=== PATIENT | female | born 1985 | race Caucasian/White ===

== ENCOUNTER 2019-06-16 12:21 | Emergency (ER) | payer OTHER, SELFPAY ==
--- NOTE | ~2019-06-16 | XR_ITS ---
EXAMINATION: XR chest 2V EXAM DATE: 06/16/2019 13:31 INDICATION: Shortness of breath for 2 weeks. 24 weeks . TECHNIQUE: Frontal and lateral projections of the chest obtained and reviewed. Patient shielded. Ther e is no prior study for comparison. FINDINGS: The lungs are clear. There are no pleural effusions. The cardiomediastinal silhouette is within normal limits. There is no pneumothorax suspected. The bones and soft tissues are unremarkab le. IMPRESSION: Normal chest x-ray exam. Reviewed, dictated and finalized at location B. SCALER IMPRESSION: Normal chest x-ray exam.
--- NOTE | 2019-06-16 12:31 | ED.GENADULT ---
HPI - General Adult General Chief complaint: Shortness of Breath/Dyspnea Stated complaint: SOB Time Seen by Provider: 06/16/19 12:31 Source: patient and RN notes reviewed Mode of arrival: ambulatory Limitations: no limitations History of Present Illness HPI narrative: This patient has had a 2 to 3-week history of a feeling of shortness of breath with exertion. This began with going up steps and with exercising such as working out at the gym and swimming. And now it is become to the point where she gets short of breath whenever she walks down the [place] or goes up 6 mild short flights of steps. She does not have any chest pain. She has a distant history of asthma as a child and exercise-induced asthma when she was a teenager for which she used inhaler, but this is not been active for years. She has not had any symptoms of respiratory infection such as fever, cough, nasal drainage, ear pain, or sore throat. She has not noticed any wheezing. She has not had any abdominal pain. She has had no recent nausea and no vomiting or diarrhea at all. She has had no hematuria, no dysuria, no pyuria. He has had no rashes. She has had no vaginal discharge or bleeding. She is 24 weeks with an uncomplicated except early in the she had morning sickness and was prescribed Compazine. She takes 1 Compazine tablet at bedtime to try and prevent morning nausea. She indicates that she does not feel anxious. She does have a new job which is a little more stressful for her at this time as well as being which certainly increases stress. She has not noticed any leg swelling. She has had no paroxysmal nocturnal dyspnea and no she does have a history of goiter but her thyroid levels have always been within normal limits. She indicates her family history is positive for her father having bipolar disorder as well as her half-sister. Her other sister also has history of anxiety. She has never had any history of any form of lung disease other than asthma and has not had any unusual weight gain and no weight loss, considering that she is 24 weeks . She is not a cigarette smoker. She has never had a history of pulmonary emboli and no history of DVT. She has no leg pain. She has had no hematuria, no dysuria, no pyuria. Her has been uncomplicated without any urinary tract infections. She does not have any back pain or arm pain. She has not had any headaches or blurred vision. She did discuss the symptoms with her automatic steel tie adjuster this morning and he advised her to come to an urgent care type setting to have a cardiac work-up and possibly a chest x-ray. Related Data Home Medications Medication Instructions Recorded Confirmed 06/16/19 Prilosec 06/16/19 promethazine 06/16/19 Allergies Allergy/AdvReac Type Severity Reaction Status Date / Time sulfamethoxazole Allergy Intermediate THROAT Verified 02/25/19 19:53 CLOSES trimethoprim Allergy Intermediate THROAT Verified 02/25/19 19:53 CLOSES codeine Allergy Mild Vomiting Verified 02/25/19 19:53 Cephalosporins Allergy Unknown Verified 02/25/19 19:53 Penicillins Allergy Unknown Verified 02/25/19 19:53 Review of Systems Review of Systems: Narrative: CONSTITUTIONAL: Denies fever, chills, or sweats. Noncontributory except as pertains to the past medical history and history of present illness. EYES: Denies visual changes, redness, or discharge. ENT: Denies rhinorrhea, congestion, sore throat, or otalgia. CARDIOVASCULAR: Denies chest pain, palpitations, or edema. RESPIRATORY: Denies cough or dyspnea. GASTROINTESTINAL: Denies abdominal pain, nausea, vomiting, or diarrhea. GENITOURINARY: Denies dysuria or hematuria. SKIN: Denies rash or itching. MUSCULOSKELETAL: Denies back pain, joint pain, or myalgia. NEUROLOGIC: Denies headache, numbness, or weakness. PSYCHIATRIC: Denies anxiety or depression. [facility] Comments At time of signature,
[2019-06-16 12:35] VITALS: BP 115/78; PULSE 78; RESP 18; TEMP 37.1; O2SAT 100
--- NOTE | 2019-06-16 13:06 | ECG_ITS ---
Measurements Intervals [place] Rate: 61 P: 30 [place]: 170 QRS: 62 QRSD: 86 T: 12 QT: 376 QTc: 379 Interpretive Statements SINUS RHYTHM WITH SINUS ARRHYTHMIA BORDERLINE ST-T WAVE ABNORMALITY- ANT/INF LEADS BASELINE ARTIFACT- I, II, III BORDERLINE ECG Electronically Signed On 06-16-2019 14:28:53 HORIZONTAL [employer] OPERATOR by Ander Houser D.O.
== END 2019-06-16 13:46 | disposition home or self-care (01) ==
PROVIDERS: Emergency Provider Family Medicine; PCP Internal Medicine
DX: R06.02 Shortness of breath (principal)
CPT/HCPCS: 71046; 81003; 93005; 99213; G0463

== ENCOUNTER 2019-06-17 11:29 | Observation (INO) | payer OTHER, SELFPAY ==
[2019-06-17] VITALS (10 sets, daily range): BP systolic 111–112; BP diastolic 66–74; PULSE 56–66; O2SAT 100; BMI 24.8
--- NOTE | 2019-06-17 11:50 | OBADM ---
This patient, Sophia Still, admitted to the OB room OB Post 115 for observation. Patient/family oriented to hospital policies and general routines including ID bracelet, bed and alarms, visiting hours, pain management, procedures, bathroom and other care routines, personal items, smoking policy, room service/diet, and visiting hours. Patient/Family are encouraged to report perceived risks to care and to ask questions if they do not understand what they are told or what they should do.
--- NOTE | 2019-06-17 14:25 | PC.NURSE ---
1230- Spoke with River Feldman CNM, regarding patient admission for observation. Patient states she is having shortness of breath x2 days, upon exertion. Vitals reviewed. No contractions noted on EFM. patient denies feeling any tightening at this time. Orders to discharge patient and send her to the ED for further evaluation.
--- NOTE | 2019-06-20 08:54 | PM.OBTRLD ---
OB - Triage/Final Diagnosis Visit Information Date of evaluation: 06/17/19 Reason for evaluation: threatened labor Comments/Additional reasons for admission: and SOB
== END 2019-06-17 12:43 | disposition home or self-care (01) ==
PROVIDERS: Admitting Provider Obstetrics & Gynecology; PCP Internal Medicine; Visit Provider Obstetrics & Gynecology
DX: O47.02 False labor before 37 completed weeks of gestation, second trimester (principal); O26.891 Other specified pregnancy related conditions, first trimester; R06.02 Shortness of breath; Z3A.24 24 weeks gestation of pregnancy
CPT/HCPCS: G0378; G0379

== ENCOUNTER 2019-06-17 12:47 | Emergency (ER) | payer OTHER, SELFPAY ==
--- NOTE | ~2019-06-17 | CT_ITS ---
EXAMINATION: CTA chest PE protocol DATE: 06/17/2019 19:02 INDICATION: Shortness of breath, 24 weeks TECHNIQUE: Computed tomography angiography (CTA) of the chest was performed with 100 mL Omnipaque-350 intravenous contrast timed to evaluate the pulmonary arteries. Coronal maximum intensity projection 3D-reconstructions were created by the technologist. The dose-length product (DLP) was 176.17 mGy-cm. Automated exposure control and iterative reconstruction technique were employed. COMPARISON: None. FINDINGS: The pulmonary arteries are well-opacified. No pulmonary embolism is identified. The lungs a re free of acute opacities. There is no pleural effusion or pneumothorax. No pathologically enlarged thoracic lymph nodes are identified. The heart size is normal. The visualized osseous structures are unremarkable. IMPRESSION: 1. No pulmonary embolism or acute cardiopulmonary abnormality. Reviewed, dictated and finalized at location A. IDER RELATIONS REP
[2019-06-17 14:00] VITALS: BP 116/71; PULSE 77; RESP 16; TEMP 37.3; O2SAT 100
[2019-06-17 14:38] LABS: Basophils Absolute Auto 0.1 K/mm3 (0.0-0.1); Basophils Percent Auto 0.4 % (0.2-1.2); Eosinophils Absolute Auto 0.2 K/mm3 (0-0.3); Eosinophils Percent Auto 1.7 % (0-4.4); Hemoglobin 11.5 g/dL (12.0-15.0); Immature Granulocyte Absolute 0.08 K/mm3 (0.00-0.031); Immature Granulocyte Percent A 0.7 % (0-0.5); Lymphocytes Absolute Auto 1.74 K/mm3 (0.9-3.2); Lymphocytes Percent Auto 15.5 % (18.3-44.2); Mean Corpuscular HGB Conc 31.9 g/dl (32-36); Mean Corpuscular Volume 87.6 fl (80-100); Mean Platelet Volume 10.4 fl (7.4-10.4); Monocytes Absolute Auto 0.9 K/mm3 (0.1-0.6); Monocytes Percent Auto 8.2 % (2.6-8.5); Neutrophils Absolute Auto 8.3 K/mm3 (1.3-6.7); Neutrophils Percent Auto 73.5 % (45.5-73.1); Platelet Count Result 268 k/mm3 (150-375); Red Blood Count 4.11 M/mm3 (4.2-5.4); Red Cell Distribution Width 13.1 % (11.5-14.5); White Blood Count 11.2 K/mm3 (4.5-10.0)
[2019-06-17 14:52] LABS: Blood Urea Nitrogen 4 mg/dL (7-17); Carbon Dioxide 22 mmol/L (22-30); Chloride 102 mmol/L (98-107); Estimated CRCL calculation 108 ml/min; Estimated Glomerular Filt Rate > 60; Glucose 126 mg/dL (65-105); Potassium 3.1 mmol/L (3.4-5.0); Sodium 137 mmol/L (137-145)
[2019-06-17 17:24] VITALS: BP 118/87; PULSE 65; PULSE 67; RESP 13; O2SAT 100
--- NOTE | 2019-06-17 17:29 | ED.SOB ---
HPI - SOB/Dyspnea General Chief Complaint: Shortness of Breath/Dyspnea Stated Complaint: breathing problems 24wks preg Time Seen by Provider: 06/17/19 17:29 Source: patient Mode of arrival: ambulatory Limitations: no limitations History of Present Illness HPI Narrative: The pt is a 34 y/o female who presents to the ED c/o SOB onset one day ago. Pt states that she is 24 weeks . Pt states that she experienced the SOB with exertion; she states that she first experienced this while walking up the stairs. Pt states that she took 10 minutes to recover, and that she was very pale when this happened; this has since resolved. Pt notes that she went to urgent care, and everything was negative at that time. Pt states that it happened later again after leaving urgent care as well as today at work. She states that she has experienced dizziness as well. Pt reports tightening in her ABD, but denies CP. MD elicited complaint: shortness of breath Onset (ago): day(s) (1) Context: occurred during exertion Associated symptoms: dizziness and other (Pallor (Resolved), tightening in ABD ) Related Data Home Medications Medication Instructions Recorded Confirmed 06/16/19 Prilosec 06/16/19 promethazine 06/16/19 Allergies Allergy/AdvReac Type Severity Reaction Status Date / Time sulfamethoxazole Allergy Intermediate THROAT Verified 06/17/19 17:27 CLOSES trimethoprim Allergy Intermediate THROAT Verified 06/17/19 17:27 CLOSES codeine Allergy Mild Vomiting Verified 06/17/19 17:27 Cephalosporins Allergy Unknown Unknown Verified 06/17/19 17:27 Penicillins Allergy Unknown Unknown Verified 06/17/19 17:27 Review of Systems Review of Systems: All systems reviewed & are unremarkable except as noted in HPI and below Cardiovascular: Cardiovascular: Denies chest pain Respiratory: Respiratory: Reports dyspnea (With exertion) Gastrointestinal: Gastrointestinal: Reports other ( Tightness in ABD ) Integumentary/Breasts: Skin/Breast: Reports other (Pallor (Resolved)) Neurologic: Reports dizziness PMFSH Past Medical History Medical History (Updated 06/17/19 @ 17:32 by Chuy Blanton) Asthma Surgical History Surgical History (Updated 06/17/19 @ 17:32 by Chuy Blanton) H/O section H/O local excision of skin lesion Back Social History Social History (Updated 06/17/19 @ 17:32 by Chuy Blanton) Smoking status: Never smoker Gender identity (if verbalized by the patient): Female Comments PCP: Dr. Luna HAT COPYIST: Dr. Mcintyre Exam Const: General: no acute distress and alert Orientation/consciousness: patient oriented x3 HENMT: Head: normal to inspection Eyes: Pupils: Equal, round and reactive pupils present Neck: Neck: normal visual inspection Chest: Chest palpation & inspection: normal inspection of the chest Resp: Effort & Inspection: normal respiratory effort Auscultation: clear to auscultation bilaterally Cardio: Rate: regular rate Rhythm: regular rhythm GI: Other: Gravid abdomen : General: Yes no CVA tenderness Skin: General skin exam: normal color Neuro: General: patient oriented x3 and moves all extremities Course Course Emergency Course: Inform patient about her lab work, CT findings. At this time there is no obvious evidence of PE or pneumonia. Removed causative factor of her shortness of breath could be bronchospasm however I discussed with Dr. Mac she will follow-up with the patient in the morning tomorrow in the office. Consultations Consultation #1: Discussed case with Dr. Mcintyre, who is okay with a CT. Date: 06/17/19 Time: 17:45 Vital Signs Vital signs: Vital Signs Temperature 37.3 C 06/17/19 14:00 Pulse Rate 77 06/17/19 14:00 Respiratory Rate 16 06/17/19 14:00 Blood Pressure 116/71 06/17/19 14:00 Pulse Oximetry 100 06/17/19 14:00 Temperature 37.3 C 06/17/19 14:00 Pulse Rate 71 06/17/19 19:29 Respiratory
[2019-06-17 19:29] VITALS: BP 115/77; PULSE 71; RESP 18; O2SAT 100
[2019-06-17 20:37] VITALS: BP 96/64; PULSE 63; O2SAT 100
== END 2019-06-17 20:39 | disposition home or self-care (01) ==
PROVIDERS: Emergency Medicine; Emergency Provider Family Medicine; PCP Internal Medicine
DX: O26.892 Other specified pregnancy related conditions, second trimester (principal); R06.02 Shortness of breath; Z3A.24 24 weeks gestation of pregnancy; O99.612 Diseases of the digestive system complicating pregnancy, second trimester; J45.909 Unspecified asthma, uncomplicated
CPT/HCPCS: 36415; 71275; 80048; 85025; 85380; 99284; Q9967

== ENCOUNTER 2019-09-22 06:52 | Inpatient (IN) | payer OTHER, SELFPAY ==
[2019-09-14 15:34] VITALS: BMI 26.2
[2019-09-21 22:38] VITALS: BP 124/80; PULSE 65; RESP 16; TEMP 36.7
[2019-09-22] VITALS (147 sets, daily range): BP systolic 73–138; BP diastolic 42–98; PULSE 52–157; TEMP 36.4–37.7; O2SAT 72–100; BMI 26.9
[2019-09-22] MEDS: LACTATED RINGERS 1,000 ML 125 ML IV CONT ×2 (08:41→10:25)
[2019-09-22 08:53] LABS: Basophils Percent Auto 0.4 % (0.2-1.2); Eosinophils Absolute Auto 0.2 K/mm3 (0-0.3); Eosinophils Percent Auto 1.4 % (0-4.4); Hematocrit 37.5 % (37.0-47.0); Hemoglobin 12.5 g/dL (12.0-15.0); Immature Granulocyte Percent A 0.9 % (0-0.5); Lymphocytes Absolute Auto 2.23 K/mm3 (0.9-3.2); Lymphocytes Percent Auto 19.5 % (18.3-44.2); Mean Corpuscular HGB Conc 33.3 g/dl (32-36); Mean Corpuscular Hemoglobin 28.2 pg (26-34); Mean Corpuscular Volume 84.7 fl (80-100); Mean Platelet Volume 11.6 fl (7.4-10.4); Monocytes Percent Auto 8.8 % (2.6-8.5); Neutrophils Absolute Auto 7.9 K/mm3 (1.3-6.7); Platelet Count Result 182 k/mm3 (150-375); Red Blood Count 4.43 M/mm3 (4.2-5.4); Red Cell Distribution Width 14.5 % (11.5-14.5); White Blood Count 11.4 K/mm3 (4.5-10.0)
--- NOTE | 2019-09-22 09:45 | WPDANESEPP ---
Anes - Eval Pre Procedure Procedure: Labor epidural Date/Time: 09/22/19 09:45 Surgeon: melida Preop Diagnosis: pain during labor Pre Op Diagnosis: leaking Patient Data Age: 34 Gender: F Height: 1.7 m Weight: 78 kg Last Vital Signs Temp 37.7 C H 09/22/19 09:30 Pulse 61 09/22/19 09:30 BP 112/73 09/22/19 09:30 Allergies Allergy/AdvReac Type Severity Reaction Status Date / Time sulfamethoxazole Allergy Intermediate THROAT Verified 06/17/19 17:27 CLOSES trimethoprim Allergy Intermediate THROAT Verified 06/17/19 17:27 CLOSES codeine Allergy Mild Vomiting Verified 06/17/19 17:27 Cephalosporins Allergy Unknown Unknown Verified 06/17/19 17:27 Penicillins Allergy Unknown Unknown Verified 06/17/19 17:27 Home Medications Medication Instructions Recorded Confirmed Type 1 tab-cap PO DAILY 06/16/19 09/22/19 History Prilosec 1 tab-cap DAILY 06/16/19 09/22/19 History paroxetine HCl 10 mg PO DAILY 09/22/19 09/22/19 History Laboratory Tests 09/22/19 09/22/19 08:40 08:40 WBC 11.4 K/mm3 H K/mm3 (4.5-10.0) RBC 4.43 M/mm3 M/mm3 (4.2-5.4) Hgb 12.5 g/dL g/dL (12.0-15.0) Hct 37.5 % % (37.0-47.0) MCV 84.7 fl fl (80-100) MCH 28.2 pg pg (26-34) MCHC 33.3 g/dl g/dl (32-36) RDW 14.5 % % (11.5-14.5) Plt Count 182 k/mm3 k/mm3 (150-375) MPV 11.6 fl H fl (7.4-10.4) Immature Gran % (Auto) 0.9 % H % (0-0.5) Neut % (Auto) 69.0 % % (45.5-73.1) Lymph % (Auto) 19.5 % % (18.3-44.2) [place] % (Auto) 8.8 % H % (2.6-8.5) Eos % (Auto) 1.4 % % (0-4.4) Baso % (Auto) 0.4 % % (0.2-1.2) Lymph # (Auto) 2.23 K/mm3 K/mm3 (0.9-3.2) [place] # (Auto) 1.0 K/mm3 H K/mm3 (0.1-0.6) Eos # (Auto) 0.2 K/mm3 K/mm3 (0-0.3) Baso # (Auto) 0.0 K/mm3 K/mm3 (0.0-0.1) Abs Immat Gran (auto) 0.10 K/mm3 H K/mm3 (0.00-0.031) Absolute Neuts (auto) 7.9 K/mm3 H K/mm3 (1.3-6.7) Absolute Nucleated RBC 0.0 K/mm3 K/mm3 (0.0-0.012) Nucleated RBC % 0.0 % % (0.0-0.2) RPR Pending Patient hx anesthesia problems: none Family hx anesthesia problems: none [facility] Past Medical History Medical History (Updated 06/18/19 @ 00:00 by Bernardino Arrieta) Asthma Surgical History Surgical History (Updated 06/17/19 @ 17:32 by Chuy Blanton) H/O section H/O local excision of skin lesion Back Social History Social History (Updated 06/17/19 @ 17:32 by Chuy Blanton) Smoking status: Never smoker Substance use: never Gender identity (if verbalized by the patient): Female Spiritual care concerns: No Exam Day of Procedure 09/22/19 09:45
--- NOTE | 2019-09-22 10:28 | LDADM ---
This patient, Sophia Still, was admitted to Labor/Delivery/Recovery 102 on 09/22/19 at 06:52. Plans for labor, pain management and were discussed with patient. Patient/family oriented to hospital policies and general routines including ID bracelet, bed and alarms, visiting hours, pain management, procedures, bathroom and other care routines, personal items, smoking policy, room service/diet and guest tray routines, infant security routines, and visiting hours. Patient/Family are encouraged to report perceived risks to care and to ask questions if they do not understand what they are told or what they should do. See OBIX for further documentation.
--- NOTE | 2019-09-22 12:01 | PM.IMHP ---
H&P: HPI History of Present Illness Chief complaint: leaking Narrative: Sophia Still is a 34 year old female 3 para 2001 at 38 weeks gestation who presents with spontaneous rupture of membranes. She has a history of a delivery. She had a subsequent vaginal that was vacuum assisted. She began having contractions after rupture of membranes. Review of Systems Constitutional: Constitutional: Reports no additional constitutional complaints, Denies fatigue, Denies headache(s), Denies lethargy and Denies weakness Eyes: Eyes: Reports no additional eye complaints, Denies blurry vision and Denies photophobia ENT: Reports as per HPI, Denies headache(s) and Denies neck pain Cardiovascular: Cardiovascular: Denies chest pain, Denies diaphoresis, Denies leg edema, Denies palpitations and Denies dyspnea Respiratory: Respiratory: Denies hemoptysis, Denies dyspnea and Denies wheezing Gastrointestinal: Gastrointestinal: Denies abdominal pain, Denies melena, Denies bloating, Denies hematochezia, Denies nausea and Denies vomiting Genitourinary: Genitourinary: Reports no additional female genitourinary complaints Musculoskeletal: Musculoskeletal: Denies joint swelling, Denies neck pain, Denies numbness and Denies stiffness Neurologic: Denies Abnormal speech present, Denies confusion, Denies headache(s), Denies numbness and Denies weakness Psychiatric: Psychiatric: Denies anxiety, Denies confusion, Denies depression, Denies homicidal ideation and Denies suicidal ideation Endocrine: Endocrine: Denies fatigue and Denies palpitations Allergic/Immunologic: Allergic/Immunologic: Denies wheezing PMFSH Past Medical History Medical History (Updated 09/22/19 @ 12:05 by Yosef Mcintyre MD) Asthma Surgical History Surgical History (Updated 09/22/19 @ 12:05 by Yosef Mcintyre MD) H/O section H/O local excision of skin lesion Back Social History Social History (Updated 06/17/19 @ 17:32 by Chuy Blanton) Smoking status: Never smoker Substance use: never Gender identity (if verbalized by the patient): Female Spiritual care concerns: No Meds Home Medications and Allergies Home Medications Medication Instructions Recorded Confirmed Type 1 tab-cap PO DAILY 06/16/19 09/22/19 History Prilosec 1 tab-cap DAILY 06/16/19 09/22/19 History paroxetine HCl 10 mg PO DAILY 09/22/19 09/22/19 History Allergies Allergy/AdvReac Type Severity Reaction Status Date / Time sulfamethoxazole Allergy Intermediate THROAT Verified 06/17/19 17:27 CLOSES trimethoprim Allergy Intermediate THROAT Verified 06/17/19 17:27 CLOSES codeine Allergy Mild Vomiting Verified 06/17/19 17:27 Cephalosporins Allergy Unknown Unknown Verified 06/17/19 17:27 Penicillins Allergy Unknown Unknown Verified 06/17/19 17:27 Vital Signs Vital Signs - 24 hr 09/22/19 08:00 09/22/19 08:30 09/22/19 09:00 Temperature Pulse Rate 81 83 71 Blood Pressure 105/83 109/71 110/76 Pulse Oximetry 09/22/19 09:30 09/22/19 10:00 09/22/19 10:30 Temperature 100 F H Pulse Rate 61 58 L 59 L Blood Pressure 112/73 125/80 125/91 H Pulse Oximetry 09/22/19 10:31 09/22/19 10:35 09/22/19 10:40 Temperature 99.7 F H Pulse Rate Blood Pressure Pulse Oximetry 100 100 09/22/19 10:43 09/22/19 10:48 09/22/19 10:53 Temperature Pulse Rate 67 Blood Pressure 116/88 Pulse Oximetry 100 85 L 100 09/22/19 10:54 09/22/19 10:55 09/22/19 10:57 Temperature Pulse Rate 66 87 Blood Pressure 117/67 124/73 Pulse Oximetry 100 09/22/19 10:58 09/22/19 10:59 09/22/19 11:00 Temperature Pulse Rate 106 H 108 H Blood Pressure 110/67 90/54 L Pulse Oximetry 100 09/22/19 11:04 09/22/19 11:05 09/22/19 11:07 Temperature Pulse Rate 73 77 Blood Pressure 104/61 93/56 L Pulse Oximetry 100 09/22/19 11:08 09/22/19 11:09 09/22/19 11:11 Temperature Pulse Rate 62
--- NOTE | 2019-09-22 14:11 | P.PNOB_ITS ---
OB - PN: Subj Subjective Date/time seen: 09/22/19 14:11 AROM - clear, 4-80/-1 IUPC placed, Reassuring FHT's OB - PN: Obj Data Labs CBC & Chem 7: 09/22/19 08:40 Labs: Laboratory Results - last 24 hr 09/22/19 09/22/19 08:40 08:40 WBC 11.4 H RBC 4.43 Hgb 12.5 Hct 37.5 MCV 84.7 MCH 28.2 MCHC 33.3 RDW 14.5 Plt Count 182 MPV 11.6 H Immature Gran % (Auto) 0.9 H Neut % (Auto) 69.0 Lymph % (Auto) 19.5 [place] % (Auto) 8.8 H Eos % (Auto) 1.4 Baso % (Auto) 0.4 Lymph # (Auto) 2.23 [place] # (Auto) 1.0 H Eos # (Auto) 0.2 Baso # (Auto) 0.0 Abs Immat Gran (auto) 0.10 H Absolute Neuts (auto) 7.9 H Absolute Nucleated RBC 0.0 Nucleated RBC % 0.0 Blood Type A Positive Antibody Screen Negative OB - PN A/P Time Spent With Patient Time: Total time spent is greater than 50% in coordination of care (as documented) at patient's floor/unit and/or counseling patient:
[2019-09-22] MEDS: OXYTOCIN 30 UNITS/NS 500 ML 30 UNITS/500 ML BAG 999 UNITS IV CONT (19:50)
--- NOTE | 2019-09-22 19:54 | PM.OBPRVD ---
OB - Delivery Note Procedure Delivery date: 09/22/19 Procedure: events: Labor Augmentation Intrapartal events: None Induction method: none Delivery augmentation: pitocin Delivery monitor: external FHT and internal uterine Route of delivery: Episiotomy description: None Laceration description: Vaginal - 2nd Degree Delivery repair: vicryl Specimen: No Estimated blood loss (mL): 200 Anesthesia type: Epidural Disposition: floor Baby Date of : 09/22/19 Time of : 19:41 Weeks of gestation at delivery: 38 gender: Male Weight (pounds): 7 Weight (ounces): 6 presentation: vertex position: Left Occiput Anterior Placenta delivery description: Spontaneous cord vessel description: 3 Vessels score one minute: 7 score five minutes: 9
[2019-09-22] MEDS: OXYTOCIN 30 UNITS/NS 500 ML 30 UNITS/500 ML BAG 125 UNITS IV CONT (20:20)
[2019-09-22] MEDS: IBUPROFEN 600 MG TABLET PO (21:23)
[2019-09-22] MEDS: WITCH HAZEL 40 PADS 1 PAD TOPICAL (21:23)
[2019-09-22] MEDS: BENZOCAINE 20% AER SPR (*SP) 56 GM CAN 1 SPRAY TOPICAL (21:23)
[2019-09-22] MEDS: PAROXETINE 10 MG TABLET PO (22:11)
[2019-09-22] MEDS: DOCUSATE SODIUM 100 MG CAPSULE PO (22:14)
[2019-09-23] MEDS: ACETAMINOPHEN 325 MG TABLET 650 MG PO ×4 (00:02→19:35)
[2019-09-23] MEDS: IBUPROFEN 600 MG TABLET PO ×4 (04:10→22:30)
[2019-09-23 05:33] LABS: Hemoglobin 11.6 g/dL (12.0-15.0)
[2019-09-23 07:17] LABS: Rapid Plasma Reagin Non-Reactive (NonReactive)
[2019-09-23] MEDS: DOCUSATE SODIUM 100 MG CAPSULE PO ×2 (07:20→19:35)
[2019-09-23] MEDS: MULTIVIT/MIN/PREN/FOL AC/IRON TABLET 1 TAB PO (07:20)
--- NOTE | 2019-09-23 07:32 | P.PNOB_ITS ---
OB - PN: Subj Subjective Date/time seen: 09/23/19 07:32 Patient comments: no complaints baby status: doing well [place] feeding status: exclusively breast feeding OB - PN: Obj Data Labs CBC & Chem 7: 09/23/19 05:20 Labs: Laboratory Results - last 24 hr 09/22/19 09/22/19 09/22/19 08:40 08:40 08:40 WBC 11.4 H RBC 4.43 Hgb 12.5 Hct 37.5 MCV 84.7 MCH 28.2 MCHC 33.3 RDW 14.5 Plt Count 182 MPV 11.6 H Immature Gran % (Auto) 0.9 H Neut % (Auto) 69.0 Lymph % (Auto) 19.5 [place] % (Auto) 8.8 H Eos % (Auto) 1.4 Baso % (Auto) 0.4 Lymph # (Auto) 2.23 [place] # (Auto) 1.0 H Eos # (Auto) 0.2 Baso # (Auto) 0.0 Abs Immat Gran (auto) 0.10 H Absolute Neuts (auto) 7.9 H Absolute Nucleated RBC 0.0 Nucleated RBC % 0.0 RPR Non-reactive Blood Type A Positive Antibody Screen Negative 09/23/19 05:20 WBC RBC Hgb 11.6 L Hct 35.0 L MCV MCH MCHC RDW Plt Count MPV Immature Gran % (Auto) Neut % (Auto) Lymph % (Auto) [place] % (Auto) Eos % (Auto) Baso % (Auto) Lymph # (Auto) [place] # (Auto) Eos # (Auto) Baso # (Auto) Abs Immat Gran (auto) Absolute Neuts (auto) Absolute Nucleated RBC Nucleated RBC % RPR Blood Type Antibody Screen OB - PN A/P Plan day: 1 Plan: routine care Time Spent With Patient Time: Total time spent is greater than 50% in coordination of care (as documented) at patient's floor/unit and/or counseling patient: Review of Systems Review of Systems: All systems reviewed & are unremarkable except as noted in HPI and below Constitutional: Constitutional: Reports as per HPI Cardiovascular: Cardiovascular: Reports as per HPI Respiratory: Respiratory: Reports as per HPI Gastrointestinal: Gastrointestinal: Reports as per HPI Exam Const: General: comfortable Resp: Effort & Inspection: normal respiratory effort
[2019-09-23 08:40] VITALS: BP 98/55; PULSE 60; RESP 18; TEMP 37.3; O2SAT 98
--- NOTE | 2019-09-23 09:02 | WPDANLDPN2 ---
Anes-Prog Note L&D Date/Time: 09/23/19 09:02 Comfortable throughout: labor Neuraxial method: epidural Epidural/Spinal procedure site: clean & non-tender Neuro status: Neuro function grossly intact. Cardiovascular status: normal Respiratory status: normal Airway patency: baseline Mental status: baseline Post-Op hydration status: normal Vital Signs: Last Vital Signs Temp 37.6 C H 09/22/19 19:19 Pulse 76 09/22/19 22:15 Resp 16 09/21/19 22:38 BP 121/75 09/22/19 22:15 Pulse Ox 100 09/22/19 19:38 I/O: Intake & Output 09/22/19 09/23/19 09/23/19 23:59 07:59 15:59 Intake Total 900 Balance 900 Post-procedural complaints: none Patient feedback: Patient satisfied with anesthetic care.
--- NOTE | 2019-09-23 14:35 | PC.NURSE ---
Mother called out for assist with latch due to nipple tenderness. Reviewed feeding cues, frequencies, duration of feedings, feeding elimination flow sheet, and signs of adequate intake. Demonstrated stimulation techniques to wake for feeding. Assisted with infant to breast. Reviewed positioning/alignment in cross cradle, holding breast in U hold and guided asymmetrical latch on. Several attempts before was able to latch correctly. nursed eagerly, with steady draws and frequent swallowing noted. Reviewed signs of a correct latch, effective nursing and suck swallow ratio. Infant pulls and tugs at breast during feeding and will slip down to shallow latch. Demonstrated how to adjust latch more deeply while feeding. was[able/unable] to maintain latch without discomfort to mother. Nipple care reviewed. Instructed mother to call out for RN assistance if she is unable to latch for feeding or she has discomfort with nursing. Instructed feeding should be initiated three hours from start of last feeding or if feeding cues are noted before. Mother voiced understanding of information shared.
[2019-09-23 18:45] VITALS: BP 137/95; PULSE 77; RESP 16; TEMP 37.1
[2019-09-23] MEDS: PAROXETINE 10 MG TABLET PO (19:35)
--- NOTE | 2019-09-24 07:44 | PM.OBPNVD ---
OB - PN: Subj Subjective Date/time seen: 09/24/19 07:44 Patient comments: no complaints, pain well controlled and tolerating diet OB - PN: Obj Data Labs CBC & Chem 7: 09/23/19 05:20 OB - PN A/P Plan day: 2 Plan: routine care and discharge home Time Spent With Patient Time: Total time spent is greater than 50% in coordination of care (as documented) at patient's floor/unit and/or counseling patient: Exam Const: General: comfortable and no acute distress Resp: Effort & Inspection: normal respiratory effort Auscultation: no rales, no rhonchi and no wheezes Cardio: Rate: regular rate Heart sounds: no click, no murmurs and no rubs GI: GI Palp: Yes Soft to palpation and No Tenderness to palpation present (GI) Auscultation: normal bowel sounds Extrem: General: normal to inspection, no pedal edema and no calf tenderness
--- NOTE | 2019-09-24 07:45 | PM.OBDSVD ---
DS: Admitting Diagnosis Admitting Diagnosis Admitting Diagnosis: Maternal care for unspecified type scar from previous delivery DS: Discharge Diagnosis Discharge Diagnosis (1) Previous delivery, antepartum condition or complication: Code(s): O34.219 - Maternal care for unspecified type scar from previous delivery Status: Acute OB - DS: Summary OB Procedures : None OB Procedures Intrapartum: OB Procedures: : None Peripartum Data Delivery Method: Natural Vaginal Laceration description: Vaginal - 2nd Degree complications: none Status at Discharge Functional status at discharge: independent ambulation Time Spent with Patient Time attestation: Total time spent providing and/or coordinating discharge services: Discharge Plan Discharge Discharging Clinician: Yosef Mcintyre Patient Disposition: Home, Self-Care Activity: pelvic rest Diet: regular Patient Instructions: Antibiotic Form Stand Alone Forms: General Discharge Information Follow-up/Referrals: Yosef Mcintyre MD [Physician] - Discharge Medications: Continued 1 tab-cap PO DAILY RF: 0 Prilosec 1 tab-cap DAILY RF: 0 paroxetine HCl 10 mg tablet 10 mg PO DAILY RF: 0 Date of admission: 09/22/19 06:52 Primary Care Provider: SusanaArmen Admitting Provider: Yosef Mcintyre Attending physician on admission: Yosef Mcintyre
[2019-09-24 08:15] VITALS: BP 138/93; PULSE 73; RESP 18; TEMP 36.8; O2SAT 98
[2019-09-24] MEDS: IBUPROFEN 600 MG TABLET PO (08:23)
[2019-09-24] MEDS: MULTIVIT/MIN/PREN/FOL AC/IRON TABLET 1 TAB PO (08:23)
[2019-09-24] MEDS: DOCUSATE SODIUM 100 MG CAPSULE PO (08:26)
--- NOTE | 2019-09-24 08:30 | PC.NURSE ---
Consulted with patient, mother continues to report tenderness with feeding, reporting is easily awoken and eager to feed. Reviewed infant feeding cues, frequencies, duration of feedings, feeding elimination flow sheet, and signs of adequate intake. Demonstrated stimulation techniques to wake infant for feeding. Observed mother latching in cradle positioning allowing to self attach with shallow latch. Assisted with to breast. Reviewed positioning/alignment cross cradle, holding breast in U hold and asymmetrical latch on. Discussed the rational for each. Infant was able to latch correctly. nursed eagerly, with steady draws and frequent swallowing noted. Reviewed signs of a correct latch, effective nursing and suck swallow ratio. Infant tends to pull back after first burst of heavy suckling. Demonstrated how to adjust latch more deeply while feeding and give slight resistance not allowing infant to pull back while feeding. was able to maintain latch without discomfort to mother. Mother reports infant has not been latching as deeply or feeding as continuous. Nipple care reviewed. Suggested mother stimulate to keep awake and nursing effectively for increased intake and to assist with maintaining deep latch. Mother is feeding as required and waking to feed if needed. has had at least 8 effective feedings in the past 24 hours, and is currently meeting outcomes for weight, output, jaundice and feeding frequencies. Mother states she feels confident to continue effective at home. Reviewed transition to breast milk, signs of adequate intake, and engorgement/relief. Instructed to call ICP if intake/output less than required. Reviewed regular medications mother is taking. Information provided per Iliana. Reviewed community resources on the [facility] website and in the Mom/Baby guide. Information on outpatient services provided. Mother has no further questions at this time.
--- NOTE | 2019-09-24 10:51 | PC.NURSE ---
Patient viewed the discharge video Mother & Baby Care, The First Two Weeks . Patient was given the opportunity and encouraged to ask questions. Patient verbalized understanding of information shared and has been given the mother/baby guide for home reference.
[2019-09-25 09:05] VITALS: BP 131/84; PULSE 69; RESP 16; TEMP 37.1; O2SAT 98
== END 2019-09-24 13:17 | disposition home or self-care (01) | DRG 807 ==
LOC: ANHLDR 08:20 → ANHOB2 23:43
PROVIDERS: Admitting Provider Obstetrics & Gynecology; PCP Internal Medicine; Visit Provider Obstetrics & Gynecology
DX: O34.211 Maternal care for low transverse scar from previous cesarean delivery (principal); Z37.0 Single live birth; O42.913 Preterm premature rupture of membranes, unspecified as to length of time between rupture and onset of labor, third trimester; O70.1 Second degree perineal laceration during delivery; O99.824 Streptococcus B carrier state complicating childbirth; Z3A.38 38 weeks gestation of pregnancy
CPT/HCPCS: 36415; 84112; 85014; 85018; 85025; 86592; 86850; 86900; 86901; A9270; J2590; J2795; J3370; J7120